=== PATIENT | male | born 1930 | race Caucasian/White ===

== ENCOUNTER 2017-07-08 13:42 | Emergency (ER) | payer MEDICARE, OTHER ==
[~2017-07-08 13:42] MED LIST: ARICEPT ODT10 MG PO; AZILECT1 MG PO; BACTRIM DS 8001 TA1 PO; BIOFLAX1000 MG PO; CARBIDOPA & LEV1 TA1 PO; COMTAN 200MG T200 MG PO; NORCO 325 MG-51 TA1 PO; ROPINIROLE12 MG PO; SAW PALMETTO450 MG PO; TERAZOSIN HCL10 MG PO
[2017-07-08] MEDS ORDERED: ST. JOSEPH ASPI81 MG PO (13:59)
[2017-07-08] MEDS ORDERED: SENNA8.6 M1 PO (13:59)
[2017-07-08] MEDS ORDERED: NAMZARIC 21 MG1 EACH PO (14:00)
[2017-07-08] MEDS ORDERED: PRAMIPEXOLE D0.25 MG PO (14:00)
[2017-07-08] MEDS ORDERED: MULTIVITAMIN1 SGL PO (14:00)
[2017-07-08] MEDS ORDERED: CEPHALEXIN500 M1 PO (14:55)
[2017-07-08 15:27] VITALS: BP 138/52
== END 2017-07-08 15:31 | disposition home or self-care (01) ==
LOC: ED 13:42
DX: L03.012 Cellulitis of left finger (principal); S61.215A Laceration without foreign body of left ring finger without damage to nail, initial encounter; W19.XXXA Unspecified fall, initial encounter; Y92.009 Unspecified place in unspecified non-institutional (private) residence as the place of occurrence of the external cause; G20 Parkinson's disease; F02.80 Dementia in other diseases classified elsewhere, unspecified severity, without behavioral disturbance, psychotic disturbance, mood disturbance, and anxiety; Z23 Encounter for immunization
CPT/HCPCS: 90715

== ENCOUNTER 2017-08-10 19:28 | Emergency (ER) | payer MEDICARE, OTHER ==
[~2017-08-10] VITALS: Ht 182.9 cm; Wt 75.0 kg
[~2017-08-10 19:28] MED LIST changes: +CEPHALEXIN500 M1 PO; +MULTIVITAMIN1 SGL PO; +NAMZARIC 21 MG1 EACH PO; +PRAMIPEXOLE D0.25 MG PO; +SENNA8.6 M1 PO; +ST. JOSEPH ASPI81 MG PO
[2017-08-10 20:25] VITALS: BP 108/46
== END 2017-08-10 20:25 | disposition home or self-care (01) ==
LOC: ED 19:28
DX: S01.01XA Laceration without foreign body of scalp, initial encounter (principal); S09.90XA Unspecified injury of head, initial encounter; W01.190A Fall on same level from slipping, tripping and stumbling with subsequent striking against furniture, initial encounter; Y92.009 Unspecified place in unspecified non-institutional (private) residence as the place of occurrence of the external cause; F03.90 Unspecified dementia, unspecified severity, without behavioral disturbance, psychotic disturbance, mood disturbance, and anxiety; Z79.82 Long term (current) use of aspirin

== ENCOUNTER → 2017-08-12 | Outpatient (CLI) | payer MEDICARE, OTHER ==
[2017-08-10 20:25] VITALS: BP 108/46
[2017-08-12 09:21] LABS: ALBUMIN 3.8 g/dL (3.5-5.0); BUN/CREATININE RATIO 52.8 (6.0-26.0); CALCIUM 8.7 mg/dL (8.4-10.2); POTASSIUM 4.3 mmol/L (3.6-5.0); TOTAL BILIRUBIN 0.5 mg/dL (0.2-1.3); TOTAL PROTEIN 6.8 g/dL (6.3-8.2)
[2017-08-12 09:24] LABS: HEMATOCRIT 42.1 % (42.0-52.0); HEMOGLOBIN 13.5 g/dL (13.5-18.0); MEAN PLATELET VOLUME 11.3 fl (7.4-10.4); RED BLOOD COUNT 4.35 M/mm3 (4.20-5.60); RED CELL DISTRIBUTION WIDTH 13.5 % (11.5-14.5); WHITE BLOOD COUNT 5.9 K/mm3 (4.8-10.8)
== END ==
LOC: LAB 08:42
PROVIDERS: Family Medicine
DX: E78.5 Hyperlipidemia, unspecified (principal); G20 Parkinson's disease; F03.90 Unspecified dementia, unspecified severity, without behavioral disturbance, psychotic disturbance, mood disturbance, and anxiety